=== PATIENT | female | born 1960 | race Native Hawaiian/Other Pacific Islander ===

== ENCOUNTER 2016-06-05 10:38 | Day surgery (SDC) | payer BC ==
[2016-05-31 14:37] VITALS: BMI 27.3
[~2016-06-05 10:38] MED LIST: LACTATED RINGERS 1,000 ML IV SCH; LIDOCAINE 1% 20 ML VIAL (10MG/ML) FOR IV START INTRADERMA PRN
[2016-06-05 12:00] VITALS: RESP 16; TEMP 97.7
[2016-06-05] MEDS ORDERED: PROPOFOL 10 MG/ML 20 ML VIAL IV ONE (12:29)
[2016-06-05] MEDS ORDERED: LIDOCAINE 1% INJ 10MG/ML (20 ML MDV) ONE (12:29)
--- NOTE | 2016-06-05 12:44 | P.PCN ---
Date of Procedure: 06/05/16 Procedure(s) Performed: BRIEF HISTORY: Patient is a 55-year-old, pleasant, white female scheduled for an upper endoscopy as a part of evaluation of intermittent dysphagia to solids for the last 1 year duration. She was admitted to the hospital with ARDS and sepsis and underwent PEG tube placement at this at that time. Since the removal of for tracheostomy she is been having intermittent dysphagia to solids and a globus-like sensation in her throat area or the time. No choking episodes. PROCEDURE PERFORMED: Esophagogastroduodenoscopy with biopsy. PREOPERATIVE DIAGNOSIS: Intermittent dysphagia to solids. IV sedation per anesthesia. PROCEDURE: After informed consent was obtained, the patient was brought into the endoscopy unit. IV conscious sedation was administered by Anesthesia under continuous monitoring. Initially the Olympus GIF-140 video endoscope was inserted into the mouth. Esophagus intubated without any difficulty. It was gradually advanced into the stomach and duodenum and carefully examined. The bulb and the second part of the duodenum appeared normal. The scope at this time was withdrawn to the stomach, adequately insufflated with air, and upon careful examination, mucosa of the antrum had multiple scattered erosions consistent with gastritis and biopsies were done from this area. The body, cardia and the fundus appeared normal. The scope was then withdrawn into the esophagus. The GE junction was located at 39 cm from the incisors. The esophagus appeared normal. There were no erosions or ulcerations seen , biopsies were done from the distal esophagus and the patient tolerated the procedure well. IMPRESSION: 1. Antral erosive gastritis. 2. Normal-appearing esophagus with no evidence of esophagitis, esophageal stricture or esophageal web. RECOMMENDATIONS: The findings of this examination were discussed with the patient as well as a family. She was advised to follow with the biopsy results.
[2016-06-05 13:18] VITALS: BP 132/86; PULSE 70
== END 2016-06-05 13:42 | disposition home or self-care (01) ==
LOC: ORWHC2ENDO 10:38
PROVIDERS: ATTEND Internal Medicine Gastroenterology
DX: K29.50 Unspecified chronic gastritis without bleeding (principal); K21.0 Gastro-esophageal reflux disease with esophagitis; I10 Essential (primary) hypertension; F41.9 Anxiety disorder, unspecified; F32.9 Major depressive disorder, single episode, unspecified; Z79.899 Other long term (current) drug therapy
CPT/HCPCS: 88305; 88342; 43239; J2001; J2704

== ENCOUNTER 2019-03-06 13:41 | Emergency (ER) | payer MEDICARE, BC, OTHER ==
[2019-03-06 13:48] VITALS: TEMP 99.1
[2019-03-06] MEDS ORDERED: ACETAMINOPHEN TAB 500 MG TAB PO STA (14:27)
[2019-03-06] MEDS ORDERED: ONDANSETRON 4 MG ODT STARTER PACK 2 TAB BTL PO STA (14:27)
[2019-03-06] MEDS ORDERED: LIDOCAINE 1% INJ 10MG/ML (20 ML MDV) SQ ONE (14:27)
[2019-03-06] MEDS ORDERED: ceFAZolin 1,000 MG VIAL (IM USE) IM STA (14:28)
[2019-03-06] MEDS ORDERED: ACET/COD 300 MG/30 MG STARTER PACK 6 TAB BTL PO STA (15:41)
[2019-03-06] MEDS ORDERED: SULFAMETH-TMP DS STARTER PACK 2 TAB BTL PO STA (15:41)
--- NOTE | 2019-03-06 15:42 | ED ---
Skin/Abscess/FB HPI - General Chief complaint: Skin/Abscess/Foreign Body Stated complaint: Abscess Time Seen by Provider: 03/06/19 13:59 Source: patient, RN notes reviewed, old records reviewed Mode of arrival: ambulatory Limitations: no limitations - History of Present Illness Initial comments: 58-year-old female presents today for evaluation for an abscess of her right buttock. Patient reports she noticed small area of the pus, papule spread to monitoring cellulitis over the past 2 days. Patient states that she has not been on any antibiotics. She denies any history of MRSA. She states that she did have some chills and fever. - Related Data Home Medications Medication Instructions Recorded Confirmed Metoprolol Tartrate 25 mg PO BID 09/19/15 03/30/17 Enalapril [Vasotec] 20 mg PO DAILY 05/31/16 03/30/17 ALPRAZolam [Xanax] 0.25 mg PO DAILY PRN 03/30/17 03/30/17 Citalopram Hydrobromide [CeleXA] 20 mg PO DAILY 03/30/17 03/30/17 Escitalopram [Lexapro] 20 mg PO DAILY 03/30/17 03/30/17 Hydrochlorothiazide [Hydrodiuril] 12.5 mg PO DAILY 03/30/17 03/30/17 Nitroglycerin Sl Tabs [Nitrostat] 0.4 mg SUBLINGUAL Q5M PRN 03/30/17 03/30/17 buPROPion [Wellbutrin] 75 mg PO DAILY 03/30/17 03/30/17 Previous Rx's Medication Instructions Recorded Baclofen [Lioresal] 10 mg PO Q6HR #30 tab 04/01/17 Loperamide [Imodium] 2 mg PO QID PRN cap 04/01/17 Naproxen [Naprosyn] 500 mg PO BID #14 tab 04/01/17 Cephalexin [Keflex] 500 mg PO Q6HR #28 cap 03/06/19 Loperamide [Imodium] 2 mg PO TID #12 capsule 03/06/19 Ondansetron Odt [Zofran Odt] 4 mg PO Q8HR PRN #12 tab 03/06/19 Sulfamethox-Tmp 800-160Mg [Bactrim 2 tab PO Q12HR #28 tab 03/06/19 DS 800-160 mg] Allergies Allergy/AdvReac Type Severity Reaction Status Date / Time No Known Allergies Allergy Verified 03/06/19 13:48 Review of Systems ROS Statement: Those systems with pertinent positive or pertinent negative responses have been documented in the HPI. ROS Other: All systems not noted in ROS Statement are negative. 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- was here and then flown to [facility] for 1 month ( in coma for 2 weeks) from respiratory failure 07/12/15- 08/12/15, TIA couple years ago-rt leg weakness, History of Any Multi-Drug Resistant Organisms: None Reported Past Surgical History: Breast Surgery, Cholecystectomy, Hysterectomy, Joint Replacement, Orthopedic Surgery Additional Past Surgical History / Comment(s): bilateral breast implants, RT KNEE REPLACEMENT, JOJO rotator cuff repair surgery, left knee arthroscopy, peg tube insertion Past Anesthesia/Blood Transfusion Reactions: No Reported Reaction Past Psychological History: Anxiety, Depression Smoking Status: Smoker, current status unknown Past Alcohol Use History: None Reported Past Drug Use History: None Reported - Past Family History Father Family Medical History: Myocardial Infarction ([place]) Additional Family Medical History / Comment(s): AT AGE 64-[place] Mother Family Medical History: No Reported History Additional Family Medical History / Comment(s): . Brother(s) Family Medical History: Deep Vein Thrombosis (DVT) General Exam - General Exam Comments Initial Comments: 38-year-old female. Alert and oriented 3. No distress. Limitations: no limitations General appearance: alert, in no apparent distress Head exam: Present: atraumatic, normocephalic, normal inspection Eye exam: Present: normal appearance, PERRL, EOMI. Absent: scleral icterus, conjunctival injection, periorbital swelling ENT exam: Present: normal exam Neck exam: Present: normal inspection. Absent: tenderness, meningismus, lymphadenopathy Respiratory exam: Present: normal lung sounds bilaterally. Absent: respiratory distress, wheezes, rales, rhonchi, stridor Cardiovascular Exam: Present: regular rate, normal rhythm, normal heart sounds. Absent: systolic murmur, diastolic murmur, rubs, gallop, clicks GI/Abdominal exam: Present: soft, normal bowel sounds. Absent: distended, ten derness, guarding, rebound, rigid Rectal exam: Present: other (Patient has evidence of cellulitis, measuring 8 cm x 10 cm, with central papular-like lesion.) Extremities exam: Present: normal inspection Back exam: Present: normal inspection Neurological exam: Present: alert, oriented X3, CN II-XII intact Psychiatric exam: Present: normal affect, normal mood Skin exam: Present: warm, dry, intact, normal color. Absent: rash Course Vital Signs 03/06/19 03/06/19 13:43 15:54 Temperature 99.1 F Pulse Rate 107 H 71 Respiratory 20 16 Rate Blood Pressure 135/75 125/78 O2 Sat by Pulse 99 99 Oximetry Procedures - Incision & Drainage Consent Obtained: verbal consent Indication: abscess Site: buttock (Abscess right) Size (cm): 2 Anesthetic Used: lidocaine 1% Amount (mLs): 10 I&D Cleaning Method: Iodine Sterile Field Used?: Yes Scalpel Used: #11 Needle Aspiration Performed?: Yes I&D Drainage Obtained: Pus, Blood Packing: Iodoform Culture Obtained?: Yes Patient Tolerated Procedure: well, no complications Medical Decision Making - Medical Decision Making 58-year-old female presents today for evaluation for concern for abscess of her right buttocks. This time patient's abscess was incised and drained. Apparently 5 mL of purulent fluid was removed. At this time Patient had a wound culture obtained. Start on Keflex and Bactrim. Patient is advised that there is any worsening redness or swelling the return. Discussed that on Friday she needs to have a follow-up with her primary care doctor and to monitor the area of redness and swelling. It worsened she may need to have IV antibiotic. Patient is agreeable treatment plan will comply. Disposition Clinical Impression: Abscess of right buttock Disposition: HOME SELF-CARE Condition: Good Instructions (If sedation given, give patient instructions): Abscess Incision and Drainage (ED) Additional Instructions: Take antibiotics as prescribed. Follow-up with her primary care doctor on Friday. He may need to have the wound repacked at that time. Monitor for any worsening swelling or drainage. A few any severe fevers or concerning symptoms please return to the ER for reevaluation. Prescriptions: Sulfamethox-Tmp 800-160Mg [Bactrim DS 800-160 mg] 2 tab PO Q12HR #28 tab Loperamide [Imodium] 2 mg PO TID #12 capsule Cephalexin [Keflex] 500 mg PO Q6HR #28 cap Ondansetron Odt [Zofran Odt] 4 mg PO Q8HR PRN #12 tab PRN Reason: Nausea Is patient prescribed a controlled substance at d/c from ED?: No Referrals: Jaycob Marx MD [Primary Care Provider] - 1-2 days Time of Disposition: 15:39
[2019-03-06 15:55] VITALS: BP 125/78; PULSE 71; RESP 16
== END 2019-03-06 15:54 | disposition home or self-care (01) ==
LOC: EC 13:41
DX: L02.31 Cutaneous abscess of buttock (principal); K61.1 Rectal abscess; I10 Essential (primary) hypertension; F32.9 Major depressive disorder, single episode, unspecified; F41.9 Anxiety disorder, unspecified; F17.200 Nicotine dependence, unspecified, uncomplicated; Z79.899 Other long term (current) drug therapy
CPT/HCPCS: 99283; 10060; 96372; J0690; J2001; S0119

== ENCOUNTER → 2019-06-23 | Outpatient (CLI) | payer MEDICARE, BC, OTHER ==
[2019-06-23 07:48] LABS: Basophils % (A) 1 %; Eosinophils # (A) 0.2 k/uL (0-0.7); Eosinophils % (A) 4 %; HCT 45.1 % (34.0-46.0); HGB 14.1 gm/dL (11.4-16.0); Lymphocytes # (A) 1.4 k/uL (1.0-4.8); Lymphocytes % (A) 25 %; MCH 28.2 pg (25.0-35.0); MCHC 31.3 g/dL (31.0-37.0); MCV 90.1 fL (80.0-100.0); Mean Platelet Volume 9.3; Monocytes # (A) 0.3 k/uL (0-1.0); Monocytes % (A) 6 %; Neutrophils # (A) 3.4 k/uL (1.3-7.7); Neutrophils % (A) 63 %; Platelet Count 198 k/uL (150-450); RBC 5.01 m/uL (3.80-5.40); RDW 13.7 % (11.5-15.5); WBC 5.4 k/uL (3.8-10.6)
[2019-06-23 10:07] LABS: Amylase 116 U/L (23-121)
== END | disposition home or self-care (01) ==
LOC: LABWHC1 07:26
PROVIDERS: ATTEND Family Medicine
DX: R10.9 Unspecified abdominal pain (principal)
CPT/HCPCS: 36415; 82150; 83690; 85025

== ENCOUNTER 2019-10-01 08:48 | Day surgery (SDC) | payer MEDICARE, OTHER ==
[2019-09-29 09:55] VITALS: BMI 29.2
[~2019-10-01 08:48] MED LIST changes: +LIDOCAINE 1% (10MG/ML) FOR IV START INTRADERMA PRN; -LIDOCAINE 1% 20 ML VIAL (10MG/ML) FOR IV START INTRADERMA PRN; +MIDAZOLAM 2 MG/2 ML VIAL IV PRN
[2019-10-01 09:08] VITALS: TEMP 97
[2019-10-01] MEDS ORDERED: PROPOFOL 10 MG/ML 20 ML VIAL IV ONE (09:28)
[2019-10-01] MEDS ORDERED: LIDOCAINE 1% INJ 10MG/ML (20 ML MDV) ONE (09:28)
--- NOTE | 2019-10-01 09:46 | P.PCN ---
Date of Procedure: 10/01/19 Procedure(s) Performed: Brief history: Patient is a pleasant 59-year-old white female scheduled for an elective upper endoscopy as well as colonoscopy as a part of evaluation of with epigastric pain for the last 6 months duration. She also scheduled for a screening colonoscopy today Procedure performed: Esophagogastroduodenoscopy with biopsy Colonoscopy Preoperative diagnosis: Epigastric pain Screening for colon cancer Anesthesia: MAC Procedure: After informed consent was obtained from the patient was brought into the endoscopy unit and IV sedation was administered by anesthesia under continuous monitoring. Initially upper endoscopy was done. The Olympus GF 160 video endoscope was inserted inserted into the mouth and esophagus intubated without any difficulty and was gradually advanced into the stomach and duodenum and carefully examined. The bulb and second part of the duodenum appeared normal. The scope was then withdrawn into the stomach adequately insufflated with air and upon careful examination the antrum had scattered erosions and biopsies were done from this area. body, cardia and fundus appeared normal. The scope was then withdrawn into the esophagus. The GE junction was located at 40 cm to the incisors. It appeared regular with no erythema erosions or ulcerations. There was a 3 mm and the Suh's appearing mucosa just proximal to the GE junction which was biopsied. Rest of the esophagus appeared normal. Patient tolerated the procedure well. At this time the patient continued to remain sedation. Initial digital rectal examination was normal. Olympus CF 160 video colonoscope was then inserted into the rectum and gradually advanced to the cecum without any difficulty. Careful examination was performed as the scope was gradually being withdrawn. The prep was poor in some areas of the colon. The cecum, ascending colon, transverse colon, descending colon, sigmoid colon and rectum appeared normal. Retroflexion was performed in the rectum and no lesions were noted. Patient tolerated the procedure well. Impression: 1. Upper endoscopy revealed mild antral gastritis and short segment Suh's esophagus 2. Colonoscopy was essentially within normal limits with no evidence of colorectal neoplasia Recommendations: Findings of this examination were discussed with the patient as well as her family. She was advised to continue with omeprazole 20 mg daily and follow antireflux measures. She can have a repeat colonoscopy in 10 years.
[2019-10-01 10:07] VITALS: BP 128/70; PULSE 56; RESP 18
== END 2019-10-01 10:19 | disposition home or self-care (01) ==
LOC: ORWHC2ENDO 08:48
PROVIDERS: ATTEND Internal Medicine Gastroenterology
DX: Z12.11 Encounter for screening for malignant neoplasm of colon (principal); K29.50 Unspecified chronic gastritis without bleeding; K22.70 Barrett's esophagus without dysplasia; Z79.899 Other long term (current) drug therapy; I10 Essential (primary) hypertension; F17.290 Nicotine dependence, other tobacco product, uncomplicated; F32.9 Major depressive disorder, single episode, unspecified; F41.9 Anxiety disorder, unspecified; K21.0 Gastro-esophageal reflux disease with esophagitis; Z90.710 Acquired absence of both cervix and uterus; Z90.49 Acquired absence of other specified parts of digestive tract; Z96.651 Presence of right artificial knee joint; Z98.890 Other specified postprocedural states
CPT/HCPCS: 88305; 43239; J2001; J2704; G0121

== ENCOUNTER → 2019-12-17 | Outpatient (CLI) | payer MEDICARE, OTHER ==
[2019-12-17 13:42] LABS: Basophils % (A) 1 %; Eosinophils # (A) 0.2 k/uL (0-0.7); Eosinophils % (A) 3 %; HCT 47.9 % (34.0-46.0); HGB 15.5 gm/dL (11.4-16.0); Lymphocytes # (A) 1.4 k/uL (1.0-4.8); Lymphocytes % (A) 21 %; MCH 28.7 pg (25.0-35.0); MCHC 32.4 g/dL (31.0-37.0); MCV 88.5 fL (80.0-100.0); Mean Platelet Volume 9.7; Monocytes # (A) 0.4 k/uL (0-1.0); Monocytes % (A) 6 %; Neutrophils # (A) 4.8 k/uL (1.3-7.7); Neutrophils % (A) 69 %; Platelet Count 221 k/uL (150-450); RBC 5.42 m/uL (3.80-5.40); RDW 13.5 % (11.5-15.5); WBC 6.9 k/uL (3.8-10.6)
[2019-12-17 15:39] LABS: Amorphous Sediment,Urine Rare /hpf; Appearance,Urine Clear (Clear); Bacteria,Urine Rare /hpf; Bilirubin,Urine Negative (Negative); Blood,Urine Negative (Negative); Color,Urine Light Yellow; Glucose,Urine (UA) Negative (Negative); Ketones,Urine Negative (Negative); Leukocyte Esterase,Urine Moderate (Negative); Mucus,Urine Rare /hpf; Nitrite,Urine Negative (Negative); PH, Urine 5.5 (5.0-8.0); Protein,Urine Negative (Negative); Specific Gravity,Urine 1.008 (1.001-1.035); Squamous Epithelial Cell,Urine 1 /hpf (0-4); Urobilinogen,Urine <2.0 mg/dL (<2.0); WBC,Urine 3 /hpf (0-5)
[2019-12-17 20:09] LABS: African American GFR (CKD) 80.5 (60.0-200.0); Albumin 4.7 g/dL (3.80-4.90); Albumin/Globulin Ratio 1.68 (1.60-3.17); Anion Gap 7.3 mmol/L (4.00-12.00); BUN/Creat Ratio 16.67 Ratio (12.00-20.00); Calcium 9.7 mg/dL (8.7-10.3); Carbon Dioxide 26.7 mmol/L (21.6-31.8); Globulin 2.8 g/dL (1.6-3.3); Non-African American GFR(CKD) 69.5 (60.0-200.0); Phosphorus 3.5 mg/dL (2.4-5.1); Total Bilirubin 0.4 mg/dL (0.3-1.2); Total Protein 7.5 g/dL (6.2-8.2)
== END | disposition home or self-care (01) ==
LOC: LABWHC1 12:08
PROVIDERS: ATTEND Orthopaedic Surgery
DX: M79.672 Pain in left foot (principal); M19.072 Primary osteoarthritis, left ankle and foot; M84.375D Stress fracture, left foot, subsequent encounter for fracture with routine healing
CPT/HCPCS: 36415; 80053; 81001; 82306; 82310; 83970; 84100; 85025

== ENCOUNTER 2020-02-16 07:53 | Emergency (ER) | payer MEDICARE, OTHER ==
[2020-02-16 07:57] VITALS: RESP 18; TEMP 97.8
[2020-02-16] MEDS ORDERED: KETOROLAC 15 MG/ML 1 ML VIAL IM STA (08:11)
--- NOTE | 2020-02-16 08:15 | ED ---
Fall HPI - General Chief Complaint: Fall Stated Complaint: Fall, Back Pain Time Seen by Provider: 02/16/20 07:58 Source: patient Mode of arrival: wheelchair - History of Present Illness Initial Comments: 59-year-old male presenting today for chief complaint of fall from bed. Patient states yesterday she fell out of her bed sleepy and out of it and lost her balance. Patient denies any syncopal episodes chest pain shortness of breath. Patient states she got her head or neck but she did strike her foot ankle and has had low back pain that radiates down her left buttock to the posterior left knee. Patient states she has been able to weight-bear and ambulate denies any loss of sensation or weakness of the extremity but states this time tender to ambulate. Patient denies loss of bowel bladder control, urinary retention, paralysis, sensation deficits. - Related Data Home Medications Medication Instructions Recorded Confirmed Metoprolol Tartrate 25 mg PO BID 09/19/15 02/16/20 Enalapril [Vasotec] 20 mg PO DAILY 05/31/16 02/16/20 Citalopram Hydrobromide [CeleXA] 20 mg PO DAILY 03/30/17 02/16/20 Escitalopram [Lexapro] 20 mg PO DAILY 03/30/17 02/16/20 buPROPion [Wellbutrin] 75 mg PO DAILY 03/30/17 02/16/20 hydroCHLOROthiazide [Hydrodiuril] 12.5 mg PO DAILY 03/30/17 02/16/20 Dextroamphetamine/Amphetamine 15 mg PO QAM 09/29/19 02/16/20 [Adderall] Temazepam [Restoril] 15 mg PO BID 09/29/19 02/16/20 ALPRAZolam [Xanax] 0.5 mg PO BID 02/16/20 02/16/20 Albuterol Inhaler [Ventolin Hfa 2 puff INHALATION RT-Q4H PRN 02/16/20 02/16/20 Inhaler] Antacid 500mg Chew 500 mg PO TID PRN 02/16/20 02/16/20 Dicyclomine [Bentyl] 10 mg PO BID PRN 02/16/20 02/16/20 Ergocalciferol [Vitamin D2] 50,000 unit PO Q72H 02/16/20 02/16/20 Omeprazole 20 mg PO DAILY 02/16/20 02/16/20 Previous Rx's Medication Instructions Recorded HYDROcodone/APAP 7.5-325MG [[place] 1 tab PO Q6HR PRN 3 Days #12 tab 02/16/20 7.5-325] predniSONE 50 mg PO DAILY 4 Days #4 tab 02/16/20 Allergies Allergy/AdvReac Type Severity Reaction Status Date / Time codeine AdvReac Abdominal Verified 02/16/20 09:07 [From Tylenol-Codeine #3] Pain Review of Systems ROS Statement: Those systems with pertinent positive or pertinent negative responses have been documented in the HPI. ROS Other: All systems not noted in ROS Statement are negative. 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- was here and then flown to [facility] for 1 month ( in coma for 2 weeks) from respiratory failure 07/12/15- 08/12/15, TIA couple years ago-rt leg weakness, STOMACH ACHE DAILY History of Any Multi-Drug Resistant Organisms: None Reported Past Surgical History: Breast Surgery, Cholecystectomy, Hysterectomy, Joint Replacement, Orthopedic Surgery Additional Past Surgical History / Comment(s): bilateral breast implants, RT KNEE REPLACEMENT, JOJO rotator cuff repair surgery, left knee arthroscopy, peg tube insertion/REMOVED, COLONOSCOPY Past Anesthesia/Blood Transfusion Reactions: No Reported Reaction Past Psychological History: ADD/ADHD, Anxiety, Depression Smoking Status: Current every day smoker Past Alcohol Use History: None Reported Past Drug Use History: None Reported - Past Family History Mother Family Medical History: No Reported History Additional Family Medical History / Comment(s): . Brother(s) Family Medical History: Deep Vein Thrombosis (DVT) General Exam - General Exam Comments Initial Comments: General: The patient is awake and alert, in no distress, appear uncomfortable with movement. Eye: Pupils are equal, round and reactive to light, extra-ocular movements are intact. No nystagmus. There is normal conjunctiva bilaterally. No signs of icterus. Ears, nose, mouth and throat: There are moist mucous membranes and no oral lesions. Neck: The neck is supple, there is no tenderness or JVD. Cardiovascular: There is a regular rate and rhythm. No murmur, rub or gallop is appreciated. Respiratory: Lungs are clear to auscultation, respirations are non-labored, breath sounds are equal. No wheezes, stridor, rales, or rhonchi. Gastrointestinal: Soft, non-distended, non-tender abdomen without masses or organomegaly noted. There is no rebound or guarding present. Musculoskeletal: Normal inspection of the left hip the ankle swelling appreciated. Pain over the medial and lateral malleolus. Forefoot pain or plantar aspect bruising. Patient is able to weight-bear positive left-sided straight leg raise. No midline tenderness. Patient these lumbar spine however there is paraspinal. .Normal ROM, of the hips, knees and ankles b/l. Strength 5/5 of the b/l. Sensation intact of the LE b/l. Radial and DP/PT pulses equal bilaterally 2+. Sensory mechanism intact. Able to weight-bear Neurological: A&O x 3. CN II-XII intact, There are no obvious motor or sensory deficits. Coordination appears grossly intact. Speech is normal. Skin: Skin is warm and dry and no rashes or lesions are noted. Psychiatric: Cooperative, appropriate mood & affect, normal judgment. Limitations: no limitations Course Vital Signs 02/16/20 02/16/20 07:55 09:50 Temperature 97.8 F Pulse Rate 79 76 Respiratory 18 18 Rate Blood Pressure 132/92 123/74 O2 Sat by Pulse 99 99 Oximetry Medical Decision Making - Medical Decision Making Imaging (-) for acute process. Patient is neurovascularly intact. Patient can weight bear. Patient appears nontoxic. Denies head or neck injury. Patient case discussed with Dr. foy who is agreeable to care plan and dishcarge. Disposition Clinical Impression: Fall, Low back pain, Radiculopathy, Ankle pain, Foot pain Disposition: HOME SELF-CARE Condition: Good Prescriptions: HYDROcodone/APAP 7.5-325MG [[place] 7.5-325] 1 tab PO Q6HR PRN 3 Days #12 tab PRN Reason: Pain predniSONE 50 mg PO DAILY 4 Days #4 tab Is patient prescribed a controlled substance at d/c from ED?: No Referrals: Jaycob Marx MD [Primary Care Provider] - 1-2 days Time of Disposition: 09:26
--- NOTE | 2020-02-16 08:57 | XR ---
EXAMINATION TYPE: XR foot complete LT DATE OF EXAM: 02/16/2020 COMPARISON: None HISTORY: Fall TECHNIQUE: Left foot is examined in 3 projections FINDINGS: No acute fractures are evident. Joint spaces are preserved. Soft tissues are unremarkable. Small plantar calcaneal heel spur is present. Follow-up exams can be performed 7-10 days from acute trauma for continued pain. IMPRESSION: 1. Normal three-view left foot
--- NOTE | 2020-02-16 08:58 | XR ---
EXAMINATION TYPE: XR lumbar spine 2 or 3V DATE OF EXAM: 02/16/2020 COMPARISON: None HISTORY: Low back pain TECHNIQUE: Three-view lumbar spine FINDINGS: There 5 lumbar-type vertebral bodies. The pedicles are intact. Disc heights appear preserve d. Vertebral body heights are preserved. Mild side bending to the right may be present in the frontal projection. This can be positional. IMPRESSION: 1. Essentially normal three-view lumbar spine
[2020-02-16] MEDS ORDERED: HYDROcodone/APAP 7.5-325MG 1 EACH TAB PO ONE (09:07)
[2020-02-16] MEDS ORDERED: ONDANSETRON ODT 4 MG TAB PO STA (09:07)
--- NOTE | 2020-02-16 09:08 | XR ---
EXAMINATION TYPE: XR ankle complete LT DATE OF EXAM: 02/16/2020 CLINICAL HISTORY: Fall on Friday. Pain down left leg from buttocks to toes of the left foot. TECHNIQUE: Frontal, lateral and oblique images of the left ankle are obtained. COMPARISON: None. FINDINGS: There is no acute fracture/dislocation evident in the left ankle. The ankle mortise appea rs within normal limits. Plantar spur. The overlying soft tissue appears unremarkable. IMPRESSION: There is no acute fracture or dislocation in the left ankle.
--- NOTE | 2020-02-16 09:23 | XR ---
EXAMINATION TYPE: XR Hip LT and AP Pelvis DATE OF EXAM: 02/16/2020 COMPARISON: None HISTORY: Fall, pain TECHNIQUE: Left hip is examined in 2 views and supplemented with an AP pelvis. FINDINGS: Femoral heads articulate with the acetabulum. Symphysis pubis and sacroiliac joints are nor mal. Normal bowel gas is present. The left hip joint spaces preserved. No acute fracture or dislocation is evident. IMPRESSION: 1. Normal 2 view left hip
[2020-02-16 09:52] VITALS: BP 123/74; PULSE 76
== END 2020-02-16 09:54 | disposition home or self-care (01) ==
LOC: EC 07:53
DX: M54.10 Radiculopathy, site unspecified (principal); S90.32XA Contusion of left foot, initial encounter; S39.92XA Unspecified injury of lower back, initial encounter; M25.572 Pain in left ankle and joints of left foot; M79.89 Other specified soft tissue disorders; F41.9 Anxiety disorder, unspecified; F32.9 Major depressive disorder, single episode, unspecified; K21.9 Gastro-esophageal reflux disease without esophagitis; I10 Essential (primary) hypertension; M19.90 Unspecified osteoarthritis, unspecified site; F17.200 Nicotine dependence, unspecified, uncomplicated; Z79.899 Other long term (current) drug therapy; Z88.5 Allergy status to narcotic agent; Z86.73 Personal history of transient ischemic attack (TIA), and cerebral infarction without residual deficits; I25.2 Old myocardial infarction; Z96.651 Presence of right artificial knee joint; W06.XXXA Fall from bed, initial encounter; Y92.003 Bedroom of unspecified non-institutional (private) residence as the place of occurrence of the external cause
CPT/HCPCS: 96372 ×2; 99283 ×2; 72100; 73502; 73610; 73630; J1885

== ENCOUNTER → 2021-04-04 | Outpatient (CLI) | payer MEDICARE, OTHER ==
[2021-04-04 15:40] LABS: Basophils # (A) 0.04 X 10*3/uL (0.00-0.10); Basophils % (A) 0.7 %; Eosinophils # (A) 0.14 X 10*3/uL (0.04-0.35); Eosinophils % (A) 2.5 %; HCT 48.5 % (37.2-46.3); HGB 15.5 g/dL (12.0-15.0); Lymphocytes # (A) 1.26 X 10*3/uL (0.90-5.00); Lymphocytes % (A) 22.5 %; MCH 28.6 pg (27.0-32.0); MCV 89.5 fL (80.0-97.0); Mean Platelet Volume 12.3 fL (9.5-12.2); Monocytes # (A) 0.44 X 10*3/uL (0.20-1.00); Monocytes % (A) 7.9 %; Neutrophils # (A) 3.69 X 10*3/uL (1.80-7.70); Neutrophils % (A) 65.9 %; Platelet Count 221 X 10*3/uL (140-440); RBC 5.42 X 10*6/uL (4.10-5.20); RDW 14.2 % (11.5-14.5)
[2021-04-04 16:48] LABS: African American GFR (CKD) 88.9 (60.0-200.0); Albumin 4.4 g/dL (3.8-4.9); Albumin/Globulin Ratio 1.58 (1.60-3.17); Anion Gap 15.9 mmol/L (10.00-18.00); BUN/Creat Ratio 16.36 Ratio (12.00-20.00); Blood Urea Nitrogen 13.5 mg/dL (9.0-27.0); Calcium 9.3 mg/dL (8.7-10.3); Carbon Dioxide 18.2 mmol/L (20.0-27.5); Globulin 2.8 g/dL (1.6-3.3); Non-African American GFR(CKD) 76.7 (60.0-200.0); Potassium 4.4 mmol/L (3.5-5.5); Total Bilirubin 0.3 mg/dL (0.30-1.20); Total Protein 7.2 g/dL (6.2-8.2)
== END | disposition home or self-care (01) ==
LOC: LABWHC1 09:31
PROVIDERS: ATTEND Family Medicine
DX: Z00.00 Encounter for general adult medical examination without abnormal findings (principal)
CPT/HCPCS: 36415; 80053; 85025

== ENCOUNTER 2021-05-04 17:59 | Emergency (ER) | payer MEDICARE, OTHER ==
[2021-05-04 18:38] VITALS: TEMP 98.9
[2021-05-04 19:23] LABS: Appearance,Urine Clear (Clear); Bilirubin,Urine Negative (Negative); Blood,Urine Negative (Negative); Color,Urine Colorless; Glucose,Urine (UA) Negative (Negative); Ketones,Urine Negative (Negative); Leukocyte Esterase,Urine Negative (Negative); Nitrite,Urine Negative (Negative); Protein,Urine Negative (Negative); Specific Gravity,Urine 1.007 (1.001-1.035); Urobilinogen,Urine <2.0 mg/dL (<2.0)
--- NOTE | 2021-05-04 20:02 | ED ---
General Adult HPI <Brandon Jackson - Last Filed: 05/04/21 21:57> - General Source: patient Mode of arrival: ambulatory Limitations: no limitations <Chau Brown - Last Filed: 05/08/21 07:34> - General Chief complaint: Chest Pain Stated complaint: Chest pain,R knee pain, ankle swelling Time Seen by Provider: 05/04/21 19:40 - History of Present Illness Initial comments: Dictation was produced using [employer] dictation software. please excuse any grammatical, word or spelling errors. Chief Complaint: 60-year-old female presents to the emergency department for knee pain, ankle pain and pleuritic chest pain History of Present Illness: Patient is 60-year-old female she states that she had a severe case of H1 N1 virus several years ago causing scarification to her lung parenchyma. She states since then she is had trouble breathing. Patient states that she is here today for chest pain and right lower extremity pain. She states she has pain to her knee and right ankle. States that it so swollen that she can put her boots on. Patient also has pleuritic right-sided chest p ain. States that it's to her right lower chest worse with deep inspiration. Patient has no history of blood clot. She states she does have some mild shortness of breath. She denies that the anus achy. Not associated with diaphoresis or radiation to the jaw or down extremity. Denies any trauma to her right lower extremity. Denies any history of heart failure. The ROS documented in this emergency department record has been reviewed and confirmed by me. Those systems with pertinent positive or negative responses have been documented in the HPI. All other systems are other negative and/or noncontributory. PHYSICAL EXAM: General Impression: Alert and oriented x3, not in acute distress HEENT: Normocephalic atraumatic, extra-ocular movements intact, pupils equal and reactive to light bilaterally, mucous membranes moist. Cardiovascular: Heart regular rate and rhythm Chest: Able to complete full sentences, no retractions, no tachypnea, was clear to auscultation bilaterally Abdomen: abdomen soft, non-tender, non-distended, no organomegaly Musculoskeletal: Pulses present and equal in all extremities, no peripheral edema, no appreciable swelling around the joints of the right lower extremity or left upper extremity patient has no calf tenderness, no popliteal tenderness and no medial thigh tenderness Motor: no focal deficits noted Neurological: CN II-XII grossly intact, no focal motor or sensory deficits noted Skin: Intact with no visualized rashes Psych: Normal affect and mood ED course: 60-year-old feel presents to the emergency department for couple complaints. She has pleuritic chest pain and right lower extremity pain that is atraumatic. Physical examination is benign. Patient has stable vital signs. Abdomen evaluation obtained. CBC unremarkable. Metabolic panel is within acceptable limits. Troponin is negative. Urinalysis negative. D-dimer is elevated 0.85. Chest x-ray is nonacute. Ankle x-ray is not acute. Knee x-rays nonacute. Pending CT angios of the chest to evaluate for pulmonary embolism. Care signed out to Dr. Jackson for follow-up of pending radiology studies. EKG interpretation: Ventricular rate of 88, normal sinus rhythm, FL interval 132, QRS 74, QTC 494. No FL prolongation, no QTC prolongation, no ST or T-wave changes noted. EKG compared to 03/30/2017 showing no changes. Overall, this EKG is unremarkable 05/08/21 733a: Chart review was performed at a later date that showed no evidence of central pulmonary embolism. Limited evaluation of segmental subsegmental branches. There does appear to be chronic changes to the lung parenchyma at the upper lobes and right middle lobe. There also appears to be a new upper pulmonary nodule measuring 4 mm. radiology recommends repeat imaging in several months. Patient was discharged by Dr. Gallagher. (Chau Brown) - Related Data Home Medications Medication Instructions Recorded Confirmed Metoprolol Tartrate 25 mg PO BID 09/19/15 02/16/20 Enalapril [Vasotec] 20 mg PO DAILY 05/31/16 02/16/20 Citalopram Hydrobromide [CeleXA] 20 mg PO DAILY 03/30/17 02/16/20 Escitalopram [Lexapro] 20 mg PO DAILY 03/30/17 02/16/20 buPROPion [Wellbutrin] 75 mg PO DAILY 03/30/17 02/16/20 hydroCHLOROthiazide [Hydrodiuril] 12.5 mg PO DAILY 03/30/17 02/16/20 Dextroamphetamine/Amphetamine 15 mg PO QAM 09/29/19 02/16/20 [Adderall] Temazepam [Restoril] 15 mg PO BID 09/29/19 02/16/20 ALPRAZolam [Xanax] 0.5 mg PO BID 02/16/20 02/16/20 Albuterol Inhaler [Ventolin Hfa 2 puff INHALATION RT-Q4H PRN 02/16/20 02/16/20 Inhaler] Antacid 500mg Chew 500 mg PO TID PRN 02/16/20 02/16/20 Dicyclomine [Bentyl] 10 mg PO BID PRN 02/16/20 02/16/20 Ergocalciferol [Vitamin D2] 50,000 unit PO Q72H 02/16/20 02/16/20 Omeprazole 20 mg PO DAILY 02/16/20 02/16/20 Previous Rx's Medication Instructions Recorded HYDROcodone/APAP 7.5-325MG [[place] 1 tab PO Q6HR PRN 3 Days #12 tab 02/16/20 7.5-325] predniSONE 50 mg PO DAILY 4 Days #4 tab 02/16/20 Allergies Allergy/AdvReac Type Severity Reaction Status Date / Time codeine AdvReac Abdominal Verified 05/04/21 18:38 [From Tylenol-Codeine #3] Pain Review of Systems ROS Other: All systems not noted in ROS Statement are negative. <Brandon Jackson - Last Filed: 05/04/21 21:57> ROS Other: All systems not noted in ROS Statement are negative. <Chau Brown - Last Filed: 05/08/21 07:34> ROS Statement: Those systems with pertinent positive or pertinent negative responses have been documented in the HPI. 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- was here and then flown to [facility] for 1 month ( in coma for 2 weeks) from respiratory failure 07/12/15- 08/12/15, TIA couple years ago-rt leg weakness, STOMACH ACHE DAILY History of Any Multi-Drug Resistant Organisms: None Reported Past Surgical History: Breast Surgery, Cholecystectomy, Hysterectomy, Joint Replacement, Orthopedic Surgery Additional Past Surgical History / Comment(s): bilateral breast implants, RT KNEE REPLACEMENT, JOJO rotator cuff repair surgery, left knee arthroscopy, peg tube insertion/REMOVED, COLONOSCOPY Past Anesthesia/Blood Transfusion Reactions: No Reported Reaction Past Psychological History: ADD/ADHD, Anxiety, Depression Smoking Status: Current every day smoker Past Alcohol Use History: None Reported Past Drug Use History: None Reported - Past Family History Mother Family Medical History: No Reported History Additional Family Medical History / Comment(s): . Brother(s) Family Medical History: Deep Vein Thrombosis (DVT) <Chau Brown - Last Filed: 05/08/21 07:34> General Exam Limitations: no limitations <Chau Brown - Last Filed: 05/08/21 07:34> Course Vital Signs 05/04/21 05/04/21 05/04/21 18:34 20:18 20:19 Temperature 98.9 F Pulse Rate 93 81 Pulse Rate [ 79 Pocket Setter Lockstitch ] Respiratory 18 20 Rate Blood Pressure 153/77 139/104 O2 Sat by Pulse 96 96 Oximetry 05/04/21 22:20 Temperature Pulse Rate 77 Pulse Rate [ Pocket Setter Lockstitch ] Respiratory 15 Rate Blood Pressure 123/74 O2 Sat by Pulse 100 Oximetry Medical Decision Making - Lab Data Result diagrams: 05/04/21 20:16 05/04/21 20:16 <Brandon Jackson - Last Filed: 05/04/21 21:57> - Lab Data Result diagrams: 05/04/21 20:16 05/04/21 20:16 <Chau Brown - Last Filed: 05/08/21 07:34> - Lab Data Lab Results 05/04/21 05/04/21 05/04/21 Range/Units 19:00 20:16 20:16 WBC 5.7 (3.8-10.6) k/uL RBC 4.34 (3.80-5.40) m/uL Hgb 12.8 (11.4-16.0) gm/dL Hct 39.2 (34.0-46.0) % MCV 90.3 (80.0-100.0) fL MCH 29.5 (25.0-35.0) pg MCHC 32.7 (31.0-37.0) g/dL RDW 13.9 (11.5-15.5) % Plt Count 212 (150-450) k/uL MPV 8.9 Neutrophils % 71 % Lymphocytes % 19 % Monocytes % 5 % Eosinophils % 4 % Basophils % 0 % Neutrophils # 4.0 (1.3-7.7) k/uL Lymphocytes # 1.1 (1.0-4.8) k/uL Monocytes # 0.3 (0-1.0) k/uL Eosinophils # 0.2 (0-0.7) k/uL Basophils # 0.0 (0-0.2) k/uL D-Dimer (<0.60) mg/L FEU Sodium 138 (137-145) mmol/L Potassium 4.3 (3.5-5.1) mmol/L Chloride 106 (98-107) mmol/L Carbon Dioxide 24 (22-30) mmol/L Anion Gap 8 mmol/L BUN 10 (7-17) mg/dL Creatinine 0.91 (0.52-1.04) mg/dL Est GFR (CKD-EPI)AfAm 79 (>60 ml/min/1.73 sqM) Est GFR (CKD-EPI)NonAf 68 (>60 ml/min/1.73 sqM) Glucose 104 H (74-99) mg/dL Calcium 8.8 (8.4-10.2) mg/dL Total Bilirubin 0.4 (0.2-1.3) mg/dL AST 30 (14-36) U/L ALT 21 (4-34) U/L Alkaline Phosphatase 166 H (38-126) U/L Troponin I (0.000-0.034) ng/mL NT-Pro-B Natriuret Pep pg/mL Total Protein 7.2 (6.3-8.2) g/dL Albumin 4.0 (3.5-5.0) g/dL Lipase 72 (23-300) U/L Urine Color Colorless Urine Appearance Clear (Clear) Urine pH 5.0 (5.0-8.0) Ur Specific [place] 1.007 (1.001-1.035) Urine Protein Negative (Negative) Urine Glucose (UA) Negative (Negative) Urine Ketones Negative (Negative) Urine Blood Negative (Negative) Urine Nitrite Negative (Negative) Urine Bilirubin Negative (Negative) Urine Urobilinogen <2.0 (<2.0) mg/dL Ur Leukocyte Esterase Negative (Negative) 05/04/21 05/04/2105/04/22 Range/Units 20:16 20:16 20:16 WBC (3.8-10.6) k/uL RBC (3.80-5.40) m/uL Hgb (11.4-16.0) gm/dL Hct (34.0-46.0) % MCV (80.0-100.0) fL MCH (25.0-35.0) pg MCHC (31.0-37.0) g/dL RDW (11.5-15.5) % Plt Count (150-450) k/uL MPV Neutrophils % % Lymphocytes % % Monocytes % % Eosinophils % % Basophils % % Neutrophils # (1.3-7.7) k/uL Lymphocytes # (1.0-4.8) k/uL Monocytes # (0-1.0) k/uL Eosinophils # (0-0.7) k/uL Basophils # (0-0.2) k/uL D-Dimer 0.85 H (<0.60) mg/L FEU Sodium (137-145) mmol/L Potassium (3.5-5.1) mmol/L Chloride (98-107) mmol/L Carbon Dioxide (22-30) mmol/L Anion Gap mmol/L BUN (7-17) mg/dL Creatinine (0.52-1.04) mg/dL Est GFR (CKD-EPI)AfAm (>60 ml/min/1.73 sqM) Est GFR (CKD-EPI)NonAf (>60 ml/min/1.73 sqM) Glucose (74-99) mg/dL Calcium (8.4-10.2) mg/dL Total Bilirubin (0.2-1.3) mg/dL AST (14-36) U/L ALT (4-34) U/L Alkaline Phosphatase (38-126) U/L Troponin I <0.012 (0.000-0.034) ng/mL NT-Pro-B Natriuret Pep 151 pg/mL Total Protein (6.3-8.2) g/dL Albumin (3.5-5.0) g/dL Lipase (23-300) U/L Urine Color Urine Appearance (Clear) Urine pH (5.0-8.0) Ur Specific [place] (1.001-1.035) Urine Protein (Negative) Urine Glucose (UA) (Negative) Urine Ketones (Negative) Urine Blood (Negative) Urine Nitrite (Negative) Urine Bilirubin (Negative) Urine Urobilinogen (<2.0) mg/dL Ur Leukocyte Esterase (Negative) Disposition Is patient prescribed a controlled substance at d/c from ED?: No <Brandon Jackson - Last Filed: 05/04/21 21:57> Is patient prescribed a controlled substance at d/c from ED?: No <Chau Brown - Last Filed: 05/08/21 07:34> Clinical Impression: Chest pain, Lower extremity pain Disposition: HOME SELF-CARE Condition: Good Instructions (If sedation given, give patient instructions): Chest Pain (ED) Additional Instructions: As we discussed, there is a nodule in your lung that will need repeat imaging probably about 12 months from now to ensure that it has not changed. Discussed with your primary physician. Referrals: Jaycob Marx MD [Primary Care Provider] - 1-2 days
--- NOTE | 2021-05-04 20:11 | XR ---
EXAMINATION TYPE: XR chest 1V portable DATE OF EXAM: 05/04/2021 7:55 PM COMPARISON:Chest radiographs from 03/30/2017 CLINICAL INDICATION:Female, 60 years old with history of pain; TECHNIQUE: Frontal view of the chest. FINDINGS: Lungs/Pleura: Interstitial changes are seen throughout the lungs similar to prior. There is no eviden ce of pleural effusion, focal consolidation, or pneumothorax. Pulmonary vascularity: Unremarkable. Heart/mediastinum: Cardiomediastinal silhouette is unremarkable. Musculoskeletal: No acute osseous pathology. Left shoulder repair changes noted IMPRESSION: Chronic changes without acute pulmonary process. No significant change from prior.
[2021-05-04 20:25] LABS: Basophils % (A) 0 %; Eosinophils # (A) 0.2 k/uL (0-0.7); Eosinophils % (A) 4 %; HCT 39.2 % (34.0-46.0); HGB 12.8 gm/dL (11.4-16.0); Lymphocytes # (A) 1.1 k/uL (1.0-4.8); Lymphocytes % (A) 19 %; MCH 29.5 pg (25.0-35.0); MCHC 32.7 g/dL (31.0-37.0); MCV 90.3 fL (80.0-100.0); Mean Platelet Volume 8.9; Monocytes # (A) 0.3 k/uL (0-1.0); Monocytes % (A) 5 %; Neutrophils % (A) 71 %; Platelet Count 212 k/uL (150-450); RBC 4.34 m/uL (3.80-5.40); RDW 13.9 % (11.5-15.5); WBC 5.7 k/uL (3.8-10.6)
[2021-05-04 20:34] LABS: Calcium 8.8 mg/dL (8.4-10.2); Potassium 4.3 mmol/L (3.5-5.1); Total Bilirubin 0.4 mg/dL (0.2-1.3); Total Protein 7.2 g/dL (6.3-8.2)
--- NOTE | 2021-05-04 20:54 | XR ---
EXAMINATION TYPE: XR ankle complete RT DATE OF EXAM: 05/04/2021 8:33 PM INDICATION: Patient age:Female; 60 years old; Reason for study: pain; COMPARISON: None TECHNIQUE: The right ankle is imaged in 3 projections. FINDINGS: There is no evidence of acute osseous pathology. The joint spaces are well-preserved without evidenc e of subluxation or dislocation. Kager's fat pad is intact. Soft tissues are within normal limits. No radiopaque foreign bodies are identified. Calcaneal plantar spurring is present. IMPRESSION: 1. No evidence of acute fracture.
--- NOTE | 2021-05-04 20:56 | XR ---
EXAMINATION TYPE: XR knee 4V RT DATE OF EXAM: 05/04/2021 8:33 PM INDICATION: Patient age:Female; 60 years old; Reason for study: pain; COMPARISON: Radiograph from 05/05/2013 TECHNIQUE: The right knee was examined in 4 projections. FINDINGS: Interval placement of total right knee prosthesis. Hardware appears intact. No periprosthet ic lucency is identified. Ossification is seen along the lateral medial lateral ligaments. No evide nce of any acute osseous pathology, joint space narrowing, soft tissue swelling, or joint effusion is noted. IMPRESSION: 1. No acute osseous pathology. 2. Interval total right knee arthroplasty changes without evidence for periprosthetic fracture or loo sening. Hardware is intact.
--- NOTE | 2021-05-04 21:43 | CT ---
EXAMINATION TYPE: CT angio chest CT DLP: 359.6 mGycm, Automated exposure control for dose reduction was used. DATE OF EXAM: 05/04/2021 9:17 PM COMPARISON: Chest radiograph from 10/05/2018. CT chest 04/12/2016 CLINICAL INDICATION:Female, 60 years old with history of positive D-dimer, elevated d-dimer TECHNIQUE/CONTRAST: CTA scan of the thorax is performed with IV Contrast, patient injected with 80 mL of Isovue 370, pulm onary embolism protocol. MIP images are created and reviewed. FINDINGS: Pulmonary Artery: There is no evidence for a central filling defect within the pulmonary vasculature to suggest acute pulmonary embolism. Limited evaluation of the segmental and subsegmental branches se condary to bolus timing. The pulmonary artery is of normal size. Lungs/Pleura: Similar appearance to the strandy/streaky opacities most pronounced in the left upper l obe and right upper and middle lobes. There is expansion of the lower lobes bilaterally. This suggest s that this represents atelectasis/scarring changes. This is seen dating back to 2016. No evidence of focal consolidation, pneumothorax or pleural effusion. Upper lobe pulmonary nodule is not seen on prior measuring up to 4.2 cm. Airway: Patent and grossly unremarkable. Heart: Within normal limits for size. Vasculature: No evidence of aortic aneurysm. Mediastinum: No gross evidence of adenopathy. Musculoskeletal: Mild degenerative disc disease changes are present throughout the thoracolumbar spin e. Soft Tissues: Lateral breast implants which appear intact. Lower neck: No significant findings. Upper Abdomen: Cholecystectomy clips are present. IMPRESSION: 1. No evidence of central pulmonary embolism. Limited evaluation of the segmental and subsegmental br anches. 2. Scarring/atelectasis changes most pronounced in the upper lobes and right middle lobe. Stable back to 2016. 3. New right upper lobe pulmonary nodule measuring 4 mm. The patient has risk factors consider follow -up in 12 months to ensure stability.
[2021-05-04 22:26] VITALS: BP 123/74; PULSE 77; RESP 15
== END 2021-05-04 22:23 | disposition home or self-care (01) ==
LOC: EC 17:59
DX: R07.89 Other chest pain (principal); M79.661 Pain in right lower leg; K21.9 Gastro-esophageal reflux disease without esophagitis; I10 Essential (primary) hypertension; M19.90 Unspecified osteoarthritis, unspecified site; F90.9 Attention-deficit hyperactivity disorder, unspecified type; F41.9 Anxiety disorder, unspecified; F32.A Depression, unspecified; F17.200 Nicotine dependence, unspecified, uncomplicated; Z88.5 Allergy status to narcotic agent; Z86.73 Personal history of transient ischemic attack (TIA), and cerebral infarction without residual deficits; Z90.49 Acquired absence of other specified parts of digestive tract; Z90.710 Acquired absence of both cervix and uterus
CPT/HCPCS: 99285; 36415; 93005; 85379; 83880; 80053; 83690; 84484; 85025; 81003; 73564; 73610; 71045; 71275; Q9967

== ENCOUNTER 2021-06-05 10:52 | Emergency (ER) | payer MEDICARE, OTHER ==
[2021-06-05] MEDS ORDERED: LORazepam 2 MG/ML INJ IM STA (11:16)
[2021-06-05 11:27] VITALS: BP 145/94; PULSE 108; RESP 22; TEMP 98.6
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
== END 2021-06-05 12:03 | disposition home or self-care (01) ==
LOC: EC 10:52
DX: F41.0 Panic disorder [episodic paroxysmal anxiety] (principal); F43.21 Adjustment disorder with depressed mood; K21.9 Gastro-esophageal reflux disease without esophagitis; I10 Essential (primary) hypertension; M19.90 Unspecified osteoarthritis, unspecified site; F90.9 Attention-deficit hyperactivity disorder, unspecified type; F32.A Depression, unspecified; F17.200 Nicotine dependence, unspecified, uncomplicated; Z88.5 Allergy status to narcotic agent; Z86.73 Personal history of transient ischemic attack (TIA), and cerebral infarction without residual deficits; Z90.49 Acquired absence of other specified parts of digestive tract; Z90.710 Acquired absence of both cervix and uterus; Z96.651 Presence of right artificial knee joint
CPT/HCPCS: 99284; 96372; J2060

== ENCOUNTER 2022-08-30 16:01 | Emergency (ER) | payer MEDICARE, OTHER ==
[2022-08-30 16:23] VITALS: RESP 16
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
--- NOTE | 2022-08-30 17:48 | ED ---
General Adult HPI - General Chief complaint: Head Injury Stated complaint: Hit head Time Seen by Provider: 08/30/22 16:24 Source: patient, RN notes reviewed Mode of arrival: ambulatory Limitations: no limitations - History of Present Illness Initial comments: 61-year-old female presents to the emergency department chief complaint of fall. She states that at 0200 today she went to use the bathroom and lost her footing falling forward and striking her head on the bathtub. She states that she is unsure if she lost consciousness. Denies blood thinners. Denies dizziness, light headedness. Denies any other injury. States that she has a mild headache at this time. She has not taken anything for pain. Past medical history includes hypertension, anxiety. - Related Data Home Medications Medication Instructions Recorded Confirmed Metoprolol Tartrate 25 mg PO BID 09/19/15 02/16/20 Enalapril [Vasotec] 20 mg PO DAILY 05/31/16 02/16/20 Citalopram Hydrobromide [CeleXA] 20 mg PO DAILY 03/30/17 02/16/20 Escitalopram [Lexapro] 20 mg PO DAILY 03/30/17 02/16/20 buPROPion [Wellbutrin] 75 mg PO DAILY 03/30/17 02/16/20 hydroCHLOROthiazide [Hydrodiuril] 12.5 mg PO DAILY 03/30/17 02/16/20 Dextroamphetamine/Amphetamine 15 mg PO QAM 09/29/19 02/16/20 [Adderall] Temazepam [Restoril] 15 mg PO BID 09/29/19 02/16/20 Albuterol Inhaler [Ventolin Hfa 2 puff INHALATION RT-Q4H PRN 02/16/20 02/16/20 Inhaler] Antacid 500mg Chew 500 mg PO TID PRN 02/16/20 02/16/20 Dicyclomine [Bentyl] 10 mg PO BID PRN 02/16/20 02/16/20 Ergocalciferol [Vitamin D2] 50,000 unit PO Q72H 02/16/20 02/16/20 Omeprazole 20 mg PO DAILY 02/16/20 02/16/20 Previous Rx's Medication Instructions Recorded HYDROcodone/APAP 7.5-325MG [[place] 1 tab PO Q6HR PRN 3 Days #12 tab 02/16/20 7.5-325] predniSONE 50 mg PO DAILY 4 Days #4 tab 02/16/20 ALPRAZolam [Xanax] 0.5 mg PO TID #9 tab 06/05/21 Allergies Allergy/AdvReac Type Severity Reaction Status Date / Time codeine AdvReac Abdominal Verified 08/30/22 16:20 [From Tylenol-Codeine #3] Pain Review of Systems ROS Statement: Those systems with pertinent positive or pertinent negative responses have been documented in the HPI. ROS Other: All systems not noted in ROS Statement are negative. 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- was here and then flown to [facility] for 1 month ( in coma for 2 weeks) from respiratory failure 07/12/15- 08/12/15, TIA couple years ago-rt leg weakness, STOMACH ACHE DAILY History of Any Multi-Drug Resistant Organisms: C-DIFF Date of last positivie culture/infection: 2014 MDRO Source:: stool Past Surgical History: Breast Surgery, Cholecystectomy, Hysterectomy, Joint Replacement, Orthopedic Surgery Additional Past Surgical History / Comment(s): bilateral breast implants, RT KNEE REPLACEMENT, JOJO rotator cuff repair surgery, left knee arthroscopy, peg tube insertion/REMOVED, COLONOSCOPY Past Anesthesia/Blood Transfusion Reactions: No Reported Reaction Past Psychological History: ADD/ADHD, Anxiety, Depression Smoking Status: Current every day smoker Past Alcohol Use History: None Reported Past Drug Use History: None Reported - Past Family History Mother Family Medical History: No Reported History Additional Family Medical History / Comment(s): . Brother(s) Family Medical History: Deep Vein Thrombosis (DVT) General Exam Limitations: no limitations General appearance: alert, in no apparent distress Head exam: Present: other (bruising to left frontal bone) Eye exam: Present: normal appearance, PERRL, EOMI. Absent: scleral icterus, conjunctival injection, periorbital swelling ENT exam: Present: normal exam, mucous membranes moist Neck exam: Present: normal inspection, full ROM. Absent: tenderness, meningismus, lymphadenopathy Respiratory exam: Present: normal lung sounds bilaterally. Absent: respiratory distress, wheezes, rales, rhonchi, stridor Cardiovascular Exam: Present: regular rate, normal rhythm, normal heart sounds. Absent: systolic murmur, diastolic murmur, rubs, gallop, clicks Extremities exam: Present: normal inspection, full ROM, normal capillary refill. Absent: tenderness, pedal edema, joint swelling, calf tenderness Back exam: Present: normal inspection, full ROM. Absent: tenderness, paraspinal tenderness, vertebral tenderness Neurological exam: Present: alert, oriented X3, CN II-XII intact Psychiatric exam: Present: normal affect, normal mood Skin exam: Present: warm, dry, intact, normal color. Absent: rash Course Vital Signs 08/30/22 08/30/22 16:20 17:55 Temperature 97.7 F 98.6 F Pulse Rate 67 61 Respiratory 16 16 Rate Blood Pressure 119/72 112/58 O2 Sat by Pulse 100 97 Oximetry Medical Decision Making - Medical Decision Making Was pt. sent in by a medical professional or institution (, PA, [facility], urgent care, hospital, or [facility]...) When possible be specific @ -No Did you speak to anyone other than the patient for history (EMS, parent, family, police, friend...)? What history was obtained from this source @ -No Did you review nursing and triage notes (agree or disagree)? Why? @ -I reviewed and agree with nursing and triage notes Were old charts reviewed (outside hosp., previous admission, EMS record, old EKG, old radiological studies, urgent care reports/EKG's, [facility] records)? Report findings @ -No old charts were reviewed Differential Diagnosis (chest pain, altered mental status, abdominal pain women, abdominal pain men, vaginal bleeding, weakness, fever, dyspnea, syncope, headache, dizziness, GI bleed, back pain, seizure, CVA, palpatations, mental health, musculoskeletal)? @ -Differential Musculoskeletal Muscular strain, contusion, ligament sprain, fracture, arthritis, septic arthritis, bursitis, cellulitis, muscle spasm, nerve compression, DVT, arterial occlusion, herpes zoster, electrolyte abnormality, tumor.... This is not meant to be in all inclusive list EKG interpreted by me (3pts min.). @ -None X-rays interpreted by me (1pt min.). @ -None done CT interpreted by me (1pt min.). @ -CT head and neck showed no acute intracranial process, left periorbital contusion without evidence of fracture, no evidence of cervical spine fracture, multilevel degenerative disc disease, pulmonary vascular congestion, 5 mm right upper lobe pulmonary nodule U/S interpreted by me (1pt. min.). @ -None done What testing was considered but not performed or refused? (CT, X-rays, U/S, labs)? Why? @ -None What meds were considered but not given or refused? Why? @ -Pain medication was considered but patient declined Did you discuss the management of the patient with other professionals (professionals i.e. , PA, [facility], lab, RT, psych nurse, bilingual social worker, sales management intern, teacher, safety and security officer, case consultant)? Give summary @ -No Was smoking cessation discussed for >3mins.? @ -No Was critical care preformed (if so, how long)? @ -No Were there social determinants of health that impacted care today? How? (Homelessness, low income, unemployed, alcoholism, drug addiction, transportation, low edu. Level, literacy, decrease access to med. care, longterm, rehab)? @ -No Was there de-escalation of care discussed even if they declined (Discuss DNR or withdrawal of care, Hospice)? DNR status @ -No What co-morbidities impacted this encounter? (DM, HTN, Smoking, COPD, CAD, Cancer, CVA, ARF, Chemo, Hep., AIDS, mental health diagnosis, sleep apnea, morb id obesity)? @ -None Was patient admitted / discharged? Hospital course, mention meds given and route, prescriptions, significant lab abnormalities, going to OR and other pertinent info. @ -Discharged. Patient presented to the emergency department following a fall that occurred this morning at 0200. The patient reports hitting her head on the bathtub. Loss of consciousness is questionable following the fall. On exam, patient is neurologically intact, ecchymosis to the left frontal. No other injuries or bruising noted. CT head and neck showed no acute intracranial process, left periorbital contusion without evidence of fracture, no evidence of cervical spine fracture. Patient was persistent about going home. Patient advised on return precautions, including new loss of consciousness, development of severe headache, confusion. Patient discharged in stable condition. Case discussed with my attending, Dr. Benitez. Undiagnosed new problem with uncertain prognosis? @ -No Drug Therapy requiring intensive monitoring for toxicity (Heparin, Nitro, Insulin, Cardizem)? @ -No Were any procedures done? @ -No Diagnosis/symptom? @ -fall Acute, or Chronic, or Acute on Chronic? @ -acute Uncomplicated (without systemic symptoms) or Complicated (systemic symptoms)? @ -uncomplicated Side effects of treatment? @ -No Exacerbation, Progression, or Severe Exacerbation? @ -No Poses a threat to life or bodily function? How? (Chest pain, [place], [place], pneumonia, PE, COPD, DKA, ARF, appy, cholecystitis, CVA, Diverticulitis, Homicidal, Suicidal, threat to staff... and all critical care pts) @ -No Disposition Clinical Impression: Contusion of scalp Disposition: HOME SELF-CARE Condition: Stable Instructions (If sedation given, give patient instructions): Concussion (ED) Additional Instructions: Please return to the Emergency Department if symptoms worsen or any other concerns. Is patient prescribed a controlled substance at d/c from ED?: No Referrals: Jaycob Marx MD [Primary Care Provider] - 1-2 days Time of Disposition: 17:48
[2022-08-30 17:56] VITALS: BP 112/58; PULSE 61; TEMP 98.6
== END 2022-08-30 17:57 | disposition home or self-care (01) ==
LOC: EC 16:01
DX: S00.03XA Contusion of scalp, initial encounter (principal); S00.12XA Contusion of left eyelid and periocular area, initial encounter; I10 Essential (primary) hypertension; K21.9 Gastro-esophageal reflux disease without esophagitis; F41.9 Anxiety disorder, unspecified; F32.A Depression, unspecified; F90.9 Attention-deficit hyperactivity disorder, unspecified type; F17.200 Nicotine dependence, unspecified, uncomplicated; Z86.73 Personal history of transient ischemic attack (TIA), and cerebral infarction without residual deficits; Z79.899 Other long term (current) drug therapy; Z88.6 Allergy status to analgesic agent; W18.2XXA Fall in (into) shower or empty bathtub, initial encounter
CPT/HCPCS: 70450; 72125; 99283

== ENCOUNTER → 2023-01-08 | Outpatient (CLI) | payer MEDICARE ==
[2023-01-08 16:41] LABS: Basophils # (A) 0.04 X 10*3/uL (0.00-0.10); Basophils % (A) 0.6 %; Eosinophils # (A) 0.12 X 10*3/uL (0.04-0.35); Eosinophils % (A) 1.9 %; HGB 15.4 d/dL (12.0-15.0); Lymphocytes # (A) 1.53 X 10*3/uL (0.90-5.00); Lymphocytes % (A) 24.1 %; MCH 27.4 pg (27.0-32.0); MCHC 32.1 d/dL (32.0-37.0); MCV 85.3 FL (80.0-97.0); Mean Platelet Volume 12.2 FL (9.5-12.2); Monocytes # (A) 0.51 X 10*3/uL (0.20-1.00); NRBC Per 100 WBC 0 X 10*3/uL (0.00-0.01); Neutrophils # (A) 4.13 X 10*3/uL (1.80-7.70); Neutrophils % (A) 65.1 %; Platelet Count 197 X 10*3/uL (140-440); RBC 5.63 X 10*6/uL (4.10-5.20); RDW 13.8 % (11.5-14.5); WBC 6.35 X 10*3/uL (4.50-10.00)
[2023-01-08 19:33] LABS: ALT 35 U/L (8-44); AST 26 U/L (13-35); Albumin 4.6 d/dL (3.8-4.9); Albumin/Globulin Ratio 1.48 Ratio (1.60-3.17); Alkaline Phosphatase 177 U/L (41-126); BUN/Creat Ratio 14.38 Ratio (12.00-20.00); Blood Urea Nitrogen 11.5 mg/dL (9.0-27.0); Calcium 9.1 mg/dL (8.7-10.3); Carbon Dioxide 19.6 mmol/L (21.6-31.8); Chloride 106 mmol/L (96-109); Chol/HDL Ratio 4.37 Ratio; Globulin 3.1 d/dL (1.6-3.3); Glucose 78 mg/dL (70-110); LDL Cholesterol,Calculated 133.8 mg/dL (0.0-131.0); Potassium 4.2 mmol/L (3.5-5.5); Sodium 139 mmol/L (135-145); Total Bilirubin 0.4 mg/dL (0.3-1.2); Total Protein 7.7 d/dL (6.2-8.2)
== END | disposition home or self-care (01) ==
LOC: LABWHC1 12:40
PROVIDERS: ATTEND Family Medicine
DX: Z00.00 Encounter for general adult medical examination without abnormal findings (principal)
CPT/HCPCS: 36415; 80053; 80061; 84443; 85025